=== PATIENT | male | born 1990 | race Caucasian/White ===

== ENCOUNTER 2019-03-09 08:50 | Emergency (ER) | payer BC, OTHER ==
[~2019-03-09] VITALS: Ht 180.3 cm; Wt 99.8 kg
[2019-03-09 09:55] VITALS: BP 121/82
[2019-03-09] MEDS ORDERED: KETOROLAC TROMETH 60MG/2ML VIAL IM ONE (10:00)
[2019-03-09] MEDS ORDERED: HYDROcodone-ACET 10/325MG TAB PO ONE (10:00)
== END 2019-03-09 10:40 | disposition home or self-care (01) ==
LOC: ER 08:50
DX: S42.101A Fracture of unspecified part of scapula, right shoulder, initial encounter for closed fracture (principal); V28.4XXA Motorcycle driver injured in noncollision transport accident in traffic accident, initial encounter; Y93.89 Activity, other specified; Y99.8 Other external cause status; Y92.89 Other specified places as the place of occurrence of the external cause
CPT/HCPCS: 29105; 73030; 96372; 99283; J1885